=== PATIENT | female | born 1960 | race Hispanic/Latino ===

== ENCOUNTER 2024-04-08 17:39 | Inpatient (IN) | payer SELFPAY ==
[~2024-04-08] VITALS: Ht 157.5 cm; Wt 119.0 kg
[2024-04-08 18:45] LABS: BASOPHILS % 0.2 % (0.0-1.0); EOSINOPHILS # (AUTO) 0.1 (0.0-0.4); EOSINOPHILS % 0.5 % (0.0-6.0); HEMATOCRIT 48.2 % (34.2-44.1); MEAN CORPUSCULAR HEMOGLOBIN 30.2 pg (28-32); MEAN CORPUSCULAR HGB CONC 33.2 g/dL (31-35); MEAN CORPUSCULAR VOLUME 90.9 fL (81-99); MONOCYTES # (AUTO) 0.7 (0.2-0.8); MONOCYTES % 6.3 % (4.4-11.3); NEUTROPHILS # (AUTO) 9.2 (2.1-6.9); NEUTROPHILS % 83.5 % (38.7-80.0); PLATELET COUNT 222 x10e3/uL (140-360); RED CELL DISTRIBUTION WIDTH 12.4 % (11.7-14.4); WHITE BLOOD COUNT 11.04 x10e3/uL (4.8-10.8)
[2024-04-08] MEDS: SODIUM CHLORIDE 0.9% 1000ML 1,000 ML IV STA ×3 (18:50→20:56)
[2024-04-08] MEDS: ONDANSETRON HCL INJ 2MG/ML 2ML 2 MG/ML VIAL IV STA (18:50)
[2024-04-08] MEDS: ACETAMINOPHEN 325 MG TAB PO STA (18:52)
[2024-04-08 19:02] LABS: ALBUMIN 3.4 g/dL (3.5-5.0); ALBUMIN/GLOBULIN RATIO 0.7 (0.8-2.0); ANION GAP 14.8 mmol/L (8-16); BILIRUBIN,TOTAL 0.5 mg/dL (0.2-1.2); CALCIUM 9.2 mg/dL (8.4-10.2); CREATININE, SERUM 0.72 mg/dL (0.57-1.11); POTASSIUM 3.8 mmol/L (3.5-5.1); TOTAL PROTEIN 8.1 g/dL (6.5-8.1)
[2024-04-08] MEDS: KETOROLAC TROMETHAMINE 30 MG/ML VIAL IV STA (19:16)
[2024-04-08] MEDS: ONDANSETRON HCL 4 MG ORAL DISINTEGRATING TAB PO ONE (20:07)
[2024-04-08 20:25] LABS: CLARITY,URINE CLEAR (CLEAR); COLOR,URINE YELLOW (YELLOW); PH,URINE 7 (5 - 7)
[2024-04-08 20:26] LABS: BILIRUBIN,URINE NEGATIVE (NEGATIVE); GLUCOSE, URINE NEGATIVE (NEGATIVE); KETONES,URINE NEGATIVE (NEGATIVE); LEUKOCYTE ESTERASE ,URINE TRACE (NEGATIVE); NITRITE,URINE POSITIVE (NEGATIVE); PROTEIN,URINE DIPSTICK NEGATIVE (NEGATIVE); URINE UROBILINOGEN 1 mg/dL (0.2 - 1)
[2024-04-08 20:38] LABS: BACTERIA,URINE RARE /HPF; EPITHELIAL CELLS,URINE FEW /LPF
[2024-04-08] MEDS: Morphine 4mg INJECTION 4 MG/ML INJ IV ONE (20:56)
[2024-04-08] MEDS: SODIUM CHLORIDE 0.9% 1000ML 1,000 ML IV SCH (21:50)
[2024-04-09] VITALS (58 sets, daily range): BP systolic 76–127; BP diastolic 41–92; PULSE 79–136; RESP 12–24; TEMP 98.5–101.4; O2SAT 90–100
[2024-04-09] MEDS: ACETAMINOPHEN 325 MG TAB PO PRN (00:30)
[2024-04-09] MEDS ORDERED: ACETAMINOPHEN 325 MG TAB ONE (03:42)
[2024-04-09] MEDS ORDERED: IBUPROFEN 600 MG TAB ONE (03:42)
[2024-04-09] MEDS: IBUPROFEN 600 MG TAB PO STA (03:48)
[2024-04-09] MEDS: ACETAMINOPHEN 325 MG TAB PO STA (03:49)
[2024-04-09 05:01] LABS: BASOPHILS % 0.2 % (0.0-1.0); HEMATOCRIT 45.3 % (34.2-44.1); HEMOGLOBIN 14.7 g/dL (12.0-16.0); LYMPHOCYTES # (AUTO) 0.7 (1.0-3.2); LYMPHOCYTES % 15.4 % (18.0-39.1); MEAN CORPUSCULAR HEMOGLOBIN 30.2 pg (28-32); MEAN CORPUSCULAR HGB CONC 32.5 g/dL (31-35); MONOCYTES % 0.6 % (4.4-11.3); NEUTROPHILS % 83.4 % (38.7-80.0); PLATELET COUNT 165 x10e3/uL (140-360); RED BLOOD COUNT 4.87 x10e6/uL (3.6-5.1); RED CELL DISTRIBUTION WIDTH 12.5 % (11.7-14.4)
[2024-04-09 05:15] LABS: WHITE BLOOD COUNT 4.75 x10e3/uL (4.8-10.8)
[2024-04-09 05:23] LABS: INR 1.3; PROTHROMBIN TIME 16.8 seconds (11.9-14.5)
[2024-04-09 05:38] LABS: ALBUMIN 2.9 g/dL (3.5-5.0); ALBUMIN/GLOBULIN RATIO 0.7 (0.8-2.0); ANION GAP 15.3 mmol/L (8-16); BILIRUBIN,TOTAL 1.2 mg/dL (0.2-1.2); CALCIUM 8.2 mg/dL (8.4-10.2); CREATININE, SERUM 0.72 mg/dL (0.57-1.11); TOTAL PROTEIN 7.1 g/dL (6.5-8.1)
[2024-04-09 05:39] LABS: CHOL/HDL RATIO 4.9 (3.0-3.6); MAGNESIUM 1.3 MG/DL (1.3-2.1); PHOSPHORUS 2.6 MG/DL (2.3-4.7)
[2024-04-09 05:40] LABS: POTASSIUM 3.3 mmol/L (3.5-5.1)
[2024-04-09] MEDS ORDERED: IBUPROFEN800 MG PO (08:33)
[2024-04-09] MEDS ORDERED: SODIUM CHLORIDE 0.9% 250ML 250 ML ONE (09:18)
[2024-04-09] MEDS: LACTATED RINGER'S 1,000 ML INJ SCH (09:19)
[2024-04-09 09:56] LABS: BAND NEUTROPHILS % (MANUAL) 26 %; LYMPHOCYTES % (MANUAL) 14 % (19-48); METAMYELOCYTES % (MANUAL) 4 % (0-0); MYELOCYTES % (MANUAL) 2 % (0-0); NEUTROPHILS % (MANUAL) 52 % (40-74); REACTIVE LYMPHOCYTES 2
[2024-04-09 09:58] LABS: PLATELET ESTIMATE ADEQUATE; PLATELET MORPHOLOGY COMMENT NORMAL; RBC MORPHOLOGY COMMENT NORMAL
[2024-04-09] MEDS: NOREPINEPHRINE 8 MG/D5W 250 ML 250 ML IV PRN (10:28)
[2024-04-09] MEDS ORDERED: IOPAMIDOL 370 MG/ML 100 ML INFUS..BTL INJ ONE (10:37)
[2024-04-09] MEDS ORDERED: LIDOCAINE HCL 1% LOCAL INJ 20 ML VIAL ONE (10:37)
[2024-04-09] MEDS ORDERED: MIDAZOLAM HCL 2 MG/2 ML VIAL ONE (11:01)
[2024-04-09] MEDS ORDERED: FENTANYL CITRATE/PF 100MCG/2 ML INJ ONE (11:01)
[2024-04-09] MEDS ORDERED: CEFTRIAXONE 1 GM VIAL ONE (11:01)
[2024-04-09] MEDS: FAMOTIDINE 20 MG TAB PO SCH (12:09)
[2024-04-09] MEDS: DOCUSATE SODIUM 100 MG CAP PO SCH (12:09)
[2024-04-09] MEDS: Morphine 4mg INJECTION 4 MG/ML INJ IV PRN (12:16)
[2024-04-09] MEDS: MAGNESIUM SULFATE 2GM/50ML 50 ML IV ONE (12:54)
[2024-04-09] MEDS: POTASSIUM CHLORIDE 20 MEQ TAB CR PO ONE (12:54)
[2024-04-09] MEDS: DIPHENHYDRAMINE HCL INJ 50 MG/ML VIAL IV ONE (16:44)
[2024-04-09 17:51] LABS: FREE T4 (FREE THYROXINE) 0.88 ng/dL (0.8-1.8); THYROID STIMULATING HORMONE 0.644 uIU/mL (0.350-4.940)
[2024-04-10] VITALS (70 sets, daily range): BP systolic 108–156; BP diastolic 66–105; PULSE 68–109; RESP 10–22; TEMP 97.9–99.4; O2SAT 91–99
[2024-04-10 06:07] LABS: BASOPHILS # (AUTO) 0.1 (0.0-0.1); BASOPHILS % 0.4 % (0.0-1.0); EOSINOPHILS # (AUTO) 0.1 (0.0-0.4); EOSINOPHILS % 0.3 % (0.0-6.0); HEMATOCRIT 42.8 % (34.2-44.1); HEMOGLOBIN 13.5 g/dL (12.0-16.0); LYMPHOCYTES # (AUTO) 1.5 (1.0-3.2); LYMPHOCYTES % 7.8 % (18.0-39.1); MEAN CORPUSCULAR HEMOGLOBIN 30.3 pg (28-32); MEAN CORPUSCULAR HGB CONC 31.5 g/dL (31-35); MEAN CORPUSCULAR VOLUME 96.2 fL (81-99); MONOCYTES % 5.3 % (4.4-11.3); NEUTROPHILS # (AUTO) 15.9 (2.1-6.9); NEUTROPHILS % 85.1 % (38.7-80.0); PLATELET COUNT 150 x10e3/uL (140-360); RED BLOOD COUNT 4.45 x10e6/uL (3.6-5.1); RED CELL DISTRIBUTION WIDTH 13.3 % (11.7-14.4); WHITE BLOOD COUNT 18.69 x10e3/uL (4.8-10.8)
[2024-04-10 06:42] LABS: ANION GAP 12.7 mmol/L (8-16); CALCIUM 8.6 mg/dL (8.4-10.2); CREATININE, SERUM 0.57 mg/dL (0.57-1.11); POTASSIUM 3.7 mmol/L (3.5-5.1)
[2024-04-10 08:21] LABS: EOSINOPHILS % (MANUAL) 11 % (0-7); LYMPHOCYTES % (MANUAL) 2 % (19-48); METAMYELOCYTES % (MANUAL) 1 % (0-0); MONOCYTES % (MANUAL) 2 % (3.4-9.0); NEUTROPHILS % (MANUAL) 84 % (40-74); PLATELET ESTIMATE ADEQUATE; PLATELET MORPHOLOGY COMMENT NORMAL; RBC MORPHOLOGY COMMENT NORMAL
[2024-04-10] MEDS: ONDANSETRON HCL INJ 2MG/ML 2ML 2 MG/ML VIAL IV PRN (15:01)
[2024-04-10] MEDS: FUROSEMIDE INJ 10 MG/ML 2 ML VIAL IV ONE (23:04)
[2024-04-11] VITALS (29 sets, daily range): BP systolic 117–166; BP diastolic 77–119; PULSE 64–82; RESP 9–25; TEMP 98–99; O2SAT 93–98
[2024-04-11 07:39] LABS: BASOPHILS # (AUTO) 0.1 (0.0-0.1); BASOPHILS % 0.4 % (0.0-1.0); EOSINOPHILS # (AUTO) 0.2 (0.0-0.4); EOSINOPHILS % 1.6 % (0.0-6.0); HEMATOCRIT 42.4 % (34.2-44.1); HEMOGLOBIN 13.6 g/dL (12.0-16.0); LYMPHOCYTES # (AUTO) 1.5 (1.0-3.2); LYMPHOCYTES % 11.6 % (18.0-39.1); MEAN CORPUSCULAR HGB CONC 32.1 g/dL (31-35); MEAN CORPUSCULAR VOLUME 93.4 fL (81-99); MONOCYTES # (AUTO) 0.9 (0.2-0.8); MONOCYTES % 6.7 % (4.4-11.3); NEUTROPHILS # (AUTO) 10.2 (2.1-6.9); NEUTROPHILS % 79.1 % (38.7-80.0); PLATELET COUNT 146 x10e3/uL (140-360); RED BLOOD COUNT 4.54 x10e6/uL (3.6-5.1); RED CELL DISTRIBUTION WIDTH 13.1 % (11.7-14.4); WHITE BLOOD COUNT 12.89 x10e3/uL (4.8-10.8)
[2024-04-11 08:05] LABS: ALBUMIN 2.5 g/dL (3.5-5.0); ALBUMIN/GLOBULIN RATIO 0.6 (0.8-2.0); ANION GAP 10.3 mmol/L (8-16); BILIRUBIN,TOTAL 0.5 mg/dL (0.2-1.2); CALCIUM 8.4 mg/dL (8.4-10.2); CREATININE, SERUM 0.61 mg/dL (0.57-1.11); TOTAL PROTEIN 6.5 g/dL (6.5-8.1)
[2024-04-11 08:07] LABS: POTASSIUM 3.3 mmol/L (3.5-5.1)
[2024-04-11] MEDS: POTASSIUM CHLORIDE 10MEQ EA PO ONE (09:22)
[2024-04-11] MEDS: ALBUTEROL/IPRATROPIUM 3 ML NEB NEB PRN (15:40)
[2024-04-11] MEDS: ENOXAPARIN SOD INJ 40 MG/0.4 ML SYR SC SCH (17:21)
[2024-04-12] VITALS (20 sets, daily range): BP systolic 106–176; BP diastolic 71–99; PULSE 62–84; RESP 12–22; TEMP 97.7–99.2; O2SAT 94–99
[2024-04-12 05:31] LABS: BASOPHILS # (AUTO) 0.1 (0.0-0.1); BASOPHILS % 0.5 % (0.0-1.0); EOSINOPHILS # (AUTO) 0.3 (0.0-0.4); EOSINOPHILS % 2.7 % (0.0-6.0); HEMATOCRIT 42.6 % (34.2-44.1); HEMOGLOBIN 13.8 g/dL (12.0-16.0); LYMPHOCYTES # (AUTO) 1.5 (1.0-3.2); LYMPHOCYTES % 16.3 % (18.0-39.1); MEAN CORPUSCULAR HEMOGLOBIN 30.2 pg (28-32); MEAN CORPUSCULAR HGB CONC 32.4 g/dL (31-35); MEAN CORPUSCULAR VOLUME 93.2 fL (81-99); MONOCYTES # (AUTO) 0.6 (0.2-0.8); MONOCYTES % 6.5 % (4.4-11.3); NEUTROPHILS # (AUTO) 6.7 (2.1-6.9); NEUTROPHILS % 73.5 % (38.7-80.0); PLATELET COUNT 172 x10e3/uL (140-360); RED BLOOD COUNT 4.57 x10e6/uL (3.6-5.1); RED CELL DISTRIBUTION WIDTH 12.9 % (11.7-14.4); WHITE BLOOD COUNT 9.18 x10e3/uL (4.8-10.8)
[2024-04-12 06:56] LABS: ANION GAP 13.2 mmol/L (8-16); CALCIUM 8.9 mg/dL (8.4-10.2); CREATININE, SERUM 0.59 mg/dL (0.57-1.11); MAGNESIUM 1.8 MG/DL (1.3-2.1)
[2024-04-12 07:03] LABS: POTASSIUM 3.2 mmol/L (3.5-5.1)
[2024-04-12] MEDS: POTASSIUM CHLORIDE 10MEQ EA PO SCH (12:21)
[2024-04-13] VITALS (11 sets, daily range): BP systolic 134–179; BP diastolic 84–107; PULSE 64–89; RESP 13–20; TEMP 97.8–98.6; O2SAT 91–97
[2024-04-13 06:09] LABS: BASOPHILS # (AUTO) 0.1 (0.0-0.1); BASOPHILS % 0.5 % (0.0-1.0); EOSINOPHILS # (AUTO) 0.3 (0.0-0.4); EOSINOPHILS % 2.5 % (0.0-6.0); HEMATOCRIT 43.1 % (34.2-44.1); LYMPHOCYTES # (AUTO) 1.7 (1.0-3.2); LYMPHOCYTES % 16.7 % (18.0-39.1); MEAN CORPUSCULAR HEMOGLOBIN 30.1 pg (28-32); MEAN CORPUSCULAR HGB CONC 32.5 g/dL (31-35); MEAN CORPUSCULAR VOLUME 92.7 fL (81-99); MONOCYTES # (AUTO) 0.8 (0.2-0.8); MONOCYTES % 8.2 % (4.4-11.3); PLATELET COUNT 187 x10e3/uL (140-360); RED BLOOD COUNT 4.65 x10e6/uL (3.6-5.1); RED CELL DISTRIBUTION WIDTH 12.9 % (11.7-14.4)
[2024-04-13 06:30] LABS: ANION GAP 13.7 mmol/L (8-16); CALCIUM 9.1 mg/dL (8.4-10.2); CREATININE, SERUM 0.6 mg/dL (0.57-1.11); POTASSIUM 3.7 mmol/L (3.5-5.1)
[2024-04-14] VITALS (10 sets, daily range): BP systolic 127–164; BP diastolic 65–97; PULSE 80–94; RESP 15–20; TEMP 96.9–98.9; O2SAT 93–100
[2024-04-14] MEDS: MEROPENEM 1 GM in SODIUM CHLORIDE 0.9% 100 ML IV SCH (06:48)
[2024-04-14 07:00] LABS: BASOPHILS # (AUTO) 0.1 (0.0-0.1); BASOPHILS % 0.8 % (0.0-1.0); EOSINOPHILS # (AUTO) 0.3 (0.0-0.4); EOSINOPHILS % 2.3 % (0.0-6.0); HEMATOCRIT 46.4 % (34.2-44.1); HEMOGLOBIN 15.2 g/dL (12.0-16.0); LYMPHOCYTES # (AUTO) 2.3 (1.0-3.2); LYMPHOCYTES % 18.2 % (18.0-39.1); MEAN CORPUSCULAR HEMOGLOBIN 30.2 pg (28-32); MEAN CORPUSCULAR HGB CONC 32.8 g/dL (31-35); MEAN CORPUSCULAR VOLUME 92.1 fL (81-99); MONOCYTES # (AUTO) 0.9 (0.2-0.8); MONOCYTES % 7.1 % (4.4-11.3); NEUTROPHILS # (AUTO) 8.8 (2.1-6.9); NEUTROPHILS % 70.3 % (38.7-80.0); PLATELET COUNT 234 x10e3/uL (140-360); RED BLOOD COUNT 5.04 x10e6/uL (3.6-5.1); RED CELL DISTRIBUTION WIDTH 12.8 % (11.7-14.4); WHITE BLOOD COUNT 12.56 x10e3/uL (4.8-10.8)
[2024-04-14 07:23] LABS: ANION GAP 10.7 mmol/L (8-16); CALCIUM 9.4 mg/dL (8.4-10.2); CREATININE, SERUM 0.63 mg/dL (0.57-1.11); POTASSIUM 3.7 mmol/L (3.5-5.1)
[2024-04-14 11:22] LABS: EOSINOPHILS % (MANUAL) 4 % (0-7); LYMPHOCYTES % (MANUAL) 27 % (19-48); MONOCYTES % (MANUAL) 3 % (3.4-9.0); NEUTROPHILS % (MANUAL) 66 % (40-74)
[2024-04-14 11:23] LABS: PLATELET ESTIMATE ADEQUATE; PLATELET MORPHOLOGY COMMENT NORMAL; RBC MORPHOLOGY COMMENT NORMAL
[2024-04-14] MEDS ORDERED: ONDANSETRON HCL 4 MG ORAL DISINTEGRATING TAB PO PRN (11:45)
[2024-04-15] VITALS (8 sets, daily range): BP systolic 123–155; BP diastolic 76–113; PULSE 73–99; RESP 16–20; TEMP 97.9–99.2; O2SAT 93–100
[2024-04-15] MEDS ORDERED: LIDOCAINE HCL 2% LOCAL INJ 5 ML SDV VIAL INJ ONE (12:13)
[2024-04-15] MEDS ORDERED: DEXAMETHASONE SOD PHOS INJ 4 MG/ML SDV ONE (12:13)
[2024-04-15] MEDS ORDERED: SEVOFLURANE INHAL SOLN 250 ML PEN BTL ONE (12:13)
[2024-04-15] MEDS ORDERED: ONDANSETRON HCL INJ 2MG/ML 2ML 2 MG/ML VIAL ONE (12:13)
[2024-04-15] MEDS ORDERED: PROPOFOL IV EMULSION 10 MG/ML 20 ML VIAL ONE (12:13)
[2024-04-15] MEDS ORDERED: IOPAMIDOL 610MG/1ML 300 MG/ML VIAL IV ONE (13:37)
[2024-04-15] MEDS ORDERED: FENTANYL CITRATE/PF 100MCG/2 ML INJ ONE (13:52)
[2024-04-16] VITALS (11 sets, daily range): BP systolic 123–130; BP diastolic 75–85; PULSE 70–86; RESP 18–19; TEMP 98–99.4; O2SAT 96–100
[2024-04-16 05:59] LABS: BASOPHILS % 0.3 % (0.0-1.0); EOSINOPHILS % 0.2 % (0.0-6.0); HEMATOCRIT 43.8 % (34.2-44.1); LYMPHOCYTES % 19.4 % (18.0-39.1); MEAN CORPUSCULAR HEMOGLOBIN 29.9 pg (28-32); MEAN CORPUSCULAR VOLUME 93.6 fL (81-99); MONOCYTES # (AUTO) 0.6 (0.2-0.8); NEUTROPHILS # (AUTO) 7.5 (2.1-6.9); NEUTROPHILS % 72.6 % (38.7-80.0); PLATELET COUNT 273 x10e3/uL (140-360); RED BLOOD COUNT 4.68 x10e6/uL (3.6-5.1); RED CELL DISTRIBUTION WIDTH 12.9 % (11.7-14.4); WHITE BLOOD COUNT 10.36 x10e3/uL (4.8-10.8)
[2024-04-16 06:41] LABS: ALBUMIN 2.8 g/dL (3.5-5.0); ALBUMIN/GLOBULIN RATIO 0.6 (0.8-2.0); ANION GAP 11.8 mmol/L (8-16); BILIRUBIN,TOTAL 0.6 mg/dL (0.2-1.2); CALCIUM 9.2 mg/dL (8.4-10.2); CREATININE, SERUM 0.63 mg/dL (0.57-1.11); MAGNESIUM 2.1 MG/DL (1.3-2.1); POTASSIUM 3.8 mmol/L (3.5-5.1); TOTAL PROTEIN 7.6 g/dL (6.5-8.1)
[2024-04-17] VITALS (9 sets, daily range): BP systolic 115–140; BP diastolic 64–90; PULSE 77–103; RESP 17–20; TEMP 98–98.6; O2SAT 95–100
[2024-04-18] VITALS (12 sets, daily range): BP systolic 113–135; BP diastolic 50–91; PULSE 80–94; RESP 17–20; TEMP 98–98.9; O2SAT 86–100
[2024-04-18 06:08] LABS: BASOPHILS # (AUTO) 0.1 (0.0-0.1); BASOPHILS % 0.6 % (0.0-1.0); EOSINOPHILS # (AUTO) 0.2 (0.0-0.4); EOSINOPHILS % 1.7 % (0.0-6.0); HEMATOCRIT 46.5 % (34.2-44.1); LYMPHOCYTES # (AUTO) 2.7 (1.0-3.2); LYMPHOCYTES % 25.8 % (18.0-39.1); MEAN CORPUSCULAR HEMOGLOBIN 30.2 pg (28-32); MEAN CORPUSCULAR HGB CONC 32.3 g/dL (31-35); MEAN CORPUSCULAR VOLUME 93.8 fL (81-99); MONOCYTES # (AUTO) 0.7 (0.2-0.8); MONOCYTES % 7.1 % (4.4-11.3); NEUTROPHILS # (AUTO) 6.6 (2.1-6.9); PLATELET COUNT 301 x10e3/uL (140-360); RED BLOOD COUNT 4.96 x10e6/uL (3.6-5.1); WHITE BLOOD COUNT 10.34 x10e3/uL (4.8-10.8)
[2024-04-18 06:26] LABS: ANION GAP 14.9 mmol/L (8-16); CALCIUM 9.1 mg/dL (8.4-10.2); CREATININE, SERUM 0.61 mg/dL (0.57-1.11); POTASSIUM 3.9 mmol/L (3.5-5.1)
[2024-04-18] MEDS: POLYETHYLENE GLYCOL 3350 17 GM PACK PO PRN (14:27)
[2024-04-19] VITALS (9 sets, daily range): BP systolic 119–129; BP diastolic 54–92; PULSE 76–98; RESP 17–20; TEMP 98.4–99.7; O2SAT 92–98
[2024-04-20] VITALS (10 sets, daily range): BP systolic 113–134; BP diastolic 59–92; PULSE 80–100; RESP 17–18; TEMP 98.1–99.7; O2SAT 92–98
[2024-04-21] VITALS (10 sets, daily range): BP systolic 113–130; BP diastolic 51–81; PULSE 74–88; RESP 16–19; TEMP 98–98.6; O2SAT 95–98
[2024-04-21 06:18] LABS: BASOPHILS # (AUTO) 0.1 (0.0-0.1); BASOPHILS % 0.7 % (0.0-1.0); EOSINOPHILS # (AUTO) 0.3 (0.0-0.4); EOSINOPHILS % 2.6 % (0.0-6.0); HEMATOCRIT 44.9 % (34.2-44.1); HEMOGLOBIN 14.4 g/dL (12.0-16.0); LYMPHOCYTES # (AUTO) 2.4 (1.0-3.2); LYMPHOCYTES % 24.6 % (18.0-39.1); MEAN CORPUSCULAR HGB CONC 32.1 g/dL (31-35); MEAN CORPUSCULAR VOLUME 93.5 fL (81-99); MONOCYTES # (AUTO) 0.8 (0.2-0.8); MONOCYTES % 8.1 % (4.4-11.3); NEUTROPHILS # (AUTO) 6.2 (2.1-6.9); NEUTROPHILS % 63.6 % (38.7-80.0); PLATELET COUNT 314 x10e3/uL (140-360); WHITE BLOOD COUNT 9.72 x10e3/uL (4.8-10.8)
[2024-04-21 06:45] LABS: CALCIUM 9.3 mg/dL (8.4-10.2); CREATININE, SERUM 0.64 mg/dL (0.57-1.11); PHOSPHORUS 3.8 MG/DL (2.3-4.7)
[2024-04-21] MEDS: HYDROCODONE/APAP 5MG-325MG TAB PO PRN (13:41)
[2024-04-21] MEDS ORDERED: MECLIZINE HCL 12.5 MG TAB PO PRN (18:45)
[2024-04-21] MEDS: MECLIZINE HCL 12.5 MG TAB PO ONE (20:20)
[2024-04-22] VITALS: BP 119/64; PULSE 87; RESP 18; TEMP 98.4; O2SAT 96
[2024-04-22 04:00] VITALS: BP 136/85; PULSE 86; RESP 18; TEMP 98.1; O2SAT 95
[2024-04-22 06:24] VITALS: PULSE 87; RESP 20; O2SAT 98
[2024-04-22 08:56] VITALS: BP 136/85; PULSE 87; RESP 20; TEMP 98.1; O2SAT 98
[2024-04-22] MEDS ORDERED: ACETAMINOPHEN325 M1 PO (09:03)
[2024-04-22] MEDS ORDERED: MECLIZINE HCL12.5 MG PO (09:03)
[2024-04-22] MEDS ORDERED: ONDANSETRON ODT4 MG PO (09:03)
[2024-04-22 09:09] VITALS: BP 132/84; PULSE 85; RESP 20; TEMP 97.9; O2SAT 96
== END 2024-04-22 11:45 | disposition home or self-care (01) | DRG 853 ==
LOC: ER 18:03 → ERHOLD 20:18 → ICU 04-09 07:41 → MED/SURG2 04-13 13:55
PROVIDERS: ADMIT Internal Medicine; ATTEND Internal Medicine
PROC: 3E0333Z Introduction of Anti-inflammatory into Peripheral Vein, Percutaneous Approach (ICD-10-PCS; 2024-04-08)
PROC: 0T9030Z Drainage of Right Kidney with Drainage Device, Percutaneous Approach (ICD-10-PCS; 2024-04-09)
PROC: 3E033XZ Introduction of Vasopressor into Peripheral Vein, Percutaneous Approach (ICD-10-PCS; 2024-04-09)
PROC: 02HV33Z Insertion of Infusion Device into Superior Vena Cava, Percutaneous Approach (ICD-10-PCS; 2024-04-09)
PROC: BT161ZZ Fluoroscopy of Right Ureter using Low Osmolar Contrast (ICD-10-PCS; 2024-04-15)
PROC: 0T768DZ Dilation of Right Ureter with Intraluminal Device, Via Natural or Artificial Opening Endoscopic (ICD-10-PCS; principal; 2024-04-15 15:20)
PROC: 0TC68ZZ Extirpation of Matter from Right Ureter, Via Natural or Artificial Opening Endoscopic (ICD-10-PCS; 2024-04-15 15:20)
DX: A41.51 Sepsis due to Escherichia coli [E. coli] (principal); J96.01 Acute respiratory failure with hypoxia; R65.21 Severe sepsis with septic shock; N13.6 Pyonephrosis; Z16.12 Extended spectrum beta lactamase (ESBL) resistance; E66.01 Morbid (severe) obesity due to excess calories; Z68.42 Body mass index [BMI] 45.0-49.9, adult; R65.20 Severe sepsis without septic shock; E87.6 Hypokalemia; R42 Dizziness and giddiness; Z11.52 Encounter for screening for COVID-19; R53.81 Other malaise; R74.01 Elevation of levels of liver transaminase levels; R61 Generalized hyperhidrosis; Z90.49 Acquired absence of other specified parts of digestive tract
CPT/HCPCS: 36415; 36569; 50432; 71045; 74176; 74420; 74470; 76942; 80048; 80053; 80061; 81001; 82948; 83036; 83605; 83690; 83735; 84100; 84439; 84443; 85025; 85610; 87040; 87071; 87086; 87186; 87205; 88300; 94640; 94799; 99152; 99153; 99252; 99285; C1729; C1766; C1769; C2617; J0696; J1100; J1200; J1650; J1885; J1940; J2001; J2185; J2250; J2270; J2405; J2470; J2543; J3475; J7030; J7050; Q0162; Q9967; U0002